=== PATIENT | female | born 1980 | race Caucasian/White ===

== ENCOUNTER 2019-07-04 09:45 | Emergency (ER) | payer OTHER ==
[~2019-07-04] VITALS: Ht 157.5 cm; Wt 81.8 kg
[2019-07-04 09:56] VITALS: TEMP 97.3
[2019-07-04 10:25] LABS: COLLECTION METHOD CLEAN CATCH
[2019-07-04 10:46] LABS: MEAN CELL VOLUME 86 fl (80.0-100.0); MEAN CORPUSCULAR HGB CONC 31 g/dl (33.0-37.0); MEAN PLATELET VOLUME 9.6 fl (7.4-10.4); PLATELET COUNT 222 K/mm3 (130-400); RED BLOOD COUNT 2.96 M/mm3 (4.10-5.30); REDCELL DISTRIBUTION WIDTH-CV 15.6 % (11.5-14.5)
[2019-07-04 10:47] LABS: HEMATOCRIT 25.5 % (37.0-47.0); HEMOGLOBIN 7.8 g/dl (12.5-16.0); MEAN CORPUSCULAR HEMOGLOBIN 26 pg (27.0-31.0)
[2019-07-04 10:53] LABS: BILIRUBIN,TOTAL 0.2 mg/dL (0.0-1.0); CALCIUM 9.1 mg/dL (8.4-10.2); CREATININE, serum 0.75 (0.52-1.25); POTASSIUM 4.1 mmol/L (3.4-5.0); TOTAL PROTEIN 6.9 gm/dL (6.4-8.2)
[2019-07-04] MEDS ORDERED: NORCO 325 MG-7.1 TAB PO (10:56)
[2019-07-04] MEDS ORDERED: ZOFRAN8 MG PO (10:56)
[2019-07-04] MEDS ORDERED: ZOLOFT 100MG100 MG PO (10:57)
[2019-07-04] MEDS ORDERED: COZAAR 50MG50 MG/TAB PO (10:58)
[2019-07-04] MEDS ORDERED: INDERAL 20MG20 MG PO (10:58)
[2019-07-04] MEDS ORDERED: MS CONTIN 115 MG/TAB PO (10:59)
[2019-07-04 11:10] LABS: PH 8 (5-8); SQUAMOUS EPITHELIAL None Seen /hpf; URINE APPEARANCE Clear; URINE BACTERIA None Seen /hpf; URINE BILIRUBIN Negative (NEGATIVE); URINE BLOOD 3+ (NEGATIVE); URINE COLOR Yellow; URINE GLUCOSE Negative (NEGATIVE); URINE KETONE Negative (NEGATIVE); URINE LEUKOCYTE ESTERASE Negative (NEGATIVE); URINE NITRATE Negative (NEGATIVE); URINE PROTEIN(semi-quant) Negative (NEGATIVE); URINE RBC >50 /hpf; URINE UROBILINOGEN Negative (NEGATIVE)
[2019-07-04 11:26] LABS: BASOPHIL 1 % (0-2); LYMPHOCYTE 7 % (20.0-51.0); NEUTROPHILS 87 % (42.0-75.2)
[2019-07-04 11:27] LABS: ANISOCYTOSIS 1+; PLATELET ESTIMATE NORMAL (NORMAL)
[2019-07-04 11:28] LABS: HYPOCHROMIA 3+
[2019-07-04] MEDS ORDERED: ATIVAN 1MG T1 MG/TAB PO (11:44)
[2019-07-04 12:12] VITALS: BP 143/90; PULSE 70
== END 2019-07-04 12:12 | disposition home or self-care (01) ==
LOC: COL.ER 09:45
PROVIDERS: Emergency Medicine
DX: C76.0 Malignant neoplasm of head, face and neck (principal); I10 Essential (primary) hypertension; E86.0 Dehydration; D64.9 Anemia, unspecified
CPT/HCPCS: J1170; J2405; J3010; J7030

== ENCOUNTER 2019-07-04 13:00 | Outpatient (RCR) | payer OTHER ==
[2019-07-04] VITALS (9 sets, daily range): BP systolic 127–159; BP diastolic 72–99; PULSE 60–80; TEMP 98.3–98.7
--- NOTE | 2019-07-04 12:30 | NUR ---
Pt arrived from ER with 20g IV in [address].Per ER nurse pt was in ER this am and discharged from ER.
[~2019-07-04 13:00] MED LIST: ATIVAN 1MG T1 MG/TAB PO; COZAAR 50MG50 MG/TAB PO; INDERAL 20MG20 MG PO; MS CONTIN 115 MG/TAB PO; NORCO 325 MG-7.1 TAB PO; ZOFRAN8 MG PO; ZOLOFT 100MG100 MG PO
== END 2019-07-04 17:44 | disposition home or self-care (01) ==
LOC: EUO 13:00
DX: C53.0 Malignant neoplasm of endocervix (principal)
CPT/HCPCS: J7050; P9040